=== PATIENT | male | born 1985 | race Caucasian/White ===

== ENCOUNTER 2018-02-04 16:34 | Emergency (ER) | payer OTHER ==
[~2018-02-04] VITALS: Ht 170.2 cm; Wt 65.3 kg
[2018-02-04] MEDS ORDERED: MOBIC7.5 MG PO (18:41)
[2018-02-04 19:13] VITALS: BP 127/83
== END 2018-02-04 19:14 | disposition home or self-care (01) ==
LOC: ER 16:34
DX: S93.492A Sprain of other ligament of left ankle, initial encounter (principal); K21.9 Gastro-esophageal reflux disease without esophagitis; W10.9XXA Fall (on) (from) unspecified stairs and steps, initial encounter; Y92.89 Other specified places as the place of occurrence of the external cause; Y93.89 Activity, other specified; Y99.8 Other external cause status